=== PATIENT | male | born 1975 | race Hispanic/Latino ===

== ENCOUNTER 2017-05-07 15:58 | Inpatient (IN) | payer MEDICAID, OTHER ==
[2017-05-07 18:02] LABS: SQUAMOUS EPITHIAL < 1 /hpf (0-5); URINE BACTERIA RARE (<OCC); URINE BILIRUBIN NEGATIVE (NEGATIVE); URINE BLOOD MODERATE (NEGATIVE); URINE CLARITY SLIGHTY-CLOUDY (Clear); URINE COLOR AMBER (YELLOW); URINE GLUCOSE (UA) NEG (Normal); URINE LEUKOCYTE ESTERASE NEG Leu/uL (Negative); URINE PROTEIN 30 mg/dL (NEGATIVE)
--- NOTE | 2017-05-07 18:04 | ED PDOC ---
HPI: Psych/Substance Abuse Time Seen by Provider: 05/07/17 16:13 Chief Complaint (Nursing): Psychiatric Evaluation Chief Complaint (Provider): Psychiatric Evaluation History Per: Patient History/Exam Limitations: no limitations Onset/Duration Of Symptoms: Days (x 1 ) Current Symptoms Are (Timing): Still Present Additional Complaint(s): 41 ear old male with history of depression and heroin abuse presents to the ED for psychiatric evaluation. Patient reports his last use of heroin was this morning. He also reports suicidal ideation. Otherwise: (-) trauma, (-) fever, (- )headache, (-) dyspnea, (-) vomiting, (-) hallucinations, (-) homicidal ideation. PMD: none provided Past Medical History Reviewed: Historical Data, Nursing Documentation, Vital Signs Vital Signs: Last Vital Signs Temp 98.4 F 05/07/17 16:16 Pulse 88 05/07/17 16:16 Resp 19 05/07/17 16:16 BP 132/71 05/07/17 16:16 Pulse Ox 100 05/07/17 16:16 - Medical History PMH: Anxiety, Asthma, Depression Denies: Diabetes, Hepatitis, HIV, HTN, Seizures, Sexually Transmitted Disease - Surgical History Surgical History: No Surg Hx - Family History Family History: States: Unknown Family Hx - Immunization History Hx Tetanus Toxoid Vaccination: No Hx Influenza Vaccination: No Hx Pneumococcal Vaccination: No - Home Medications Home Medications: Ambulatory Orders Medication Instructions Recorded Albuterol HFA [Ventolin HFA 90 2 puff IH [id number] PRN 05/07/17 mcg/actuation (8 g)] - Allergies Allergies/Adverse Reactions: Allergies Allergy/AdvReac Type Severity Reaction Status Date / Time Penicillins Allergy Verified 05/07/17 15:12 Review of Systems ROS Statement: Except As Marked, All Systems Reviewed And Found Negative Psych: Positive for: Suicidal ideation. Negative for: Other (homicidal ideation , hallucinations) Physical Exam - Reviewed Nursing Documentation Reviewed: Yes Vital Signs Reviewed: Yes - Physical Exam Comments: GENERAL APPEARANCE: Patient is awake, alert, oriented x 3, in no acute distress. SKIN: Warm, dry; (-) cyanosis HEAD: (-) scalp swelling, (-) scalp tenderness. EYES: (-) conjunctival pallor, (-) scleral icterus, (-) nystagmus. ENMT: Mucous membranes moist. Airway patent: (-) stridor. NECK: (-) tenderness, (-) stiffness, (-) lymphadenopathy. CHEST AND RESPIRATORY: (-) rales, (-) rhonchi, (-) wheezes; breath sounds equal. ABDOMEN: Soft, (-) distention, (-) tenderness, (-) guarding. NEURO AND PSYCH: Mental status as above. Affect: Calm and cooperative. sales team leader: Intact. Pupils equal and reactive; EOMI; (-) facial asymmetry; tongue and uvula midline. Strength and DTRs symmetric. - Laboratory Results Result Diagrams: 05/07/17 17:48 05/07/17 17:48 - ECG O2 Sat by Pulse Oximetry: 100 (RA) Pulse Ox Interpretation: Normal Medical Decision Making Medical Decision Making: Time: 16:16 Initial Plan: --Alcohol serum --CMP --Urine drug --CBC with differentials --Urinalysis Case was discussed with crisis. Patient was evaluated at [facility] today for similar symptoms and was discharged. Labs reviewed. Patient is medically cleared for crisis evaluation. Patient is seen and evaluated by crisis. As per crisis evaluation, decision made for inpatient admission as per Dr. Mckinney for depression. ---- Scribe Attestation: Documented by Wen Li, acting as a scribe for Drea Loyola PA-C Provider Scribe Attestation: All medical record entries made by the Scribe were at my direction and personally dictated by me. I have reviewed the chart and agree that the record accurately reflects my personal performance of the history, physical exam, medical decision making, and the department course for this patient. I have also personally directed, reviewed, and agree with the discharge instructions and disposition. Disposition - Clinical Impression Clinical Impression: Depression - Patient ED Disposition Is Patient to be Admitted: No - Disposition Disposition: Routine/Home Disposition Time: 19:00 Condition: STABLE - PA / WEB APPLICATIONS ARCHITECT / Resident Statement / has reviewed & agrees with the documentation as recorded.
[2017-05-07 18:14] LABS: ALBUMIN 4.1 g/dL (3.5-5.0); ALT/SGPT 25 U/L (21-72); AST/SGOT 23 U/L (17-59); BLOOD UREA NITROGEN 14 mg/dl (9-20); CALCIUM 9.5 mg/dL (8.4-10.2); GFR AFRICAN-AMERICAN > 60; GFR NON-AFRICAN AMERICAN > 60
[2017-05-07 18:19] LABS: BARBITURATES, UR NEGATIVE (NEGATIVE); BENZODIAZEPINES, UR NEGATIVE (NEGATIVE); OPIATES, UR POSITIVE (NEGATIVE); PHENCYCLIDINE, UR NEGATIVE (NEGATIVE)
[2017-05-07 18:20] LABS: BASO # 0.1 K/uL (0.0-0.2); BASO % 0.9 % (0.0-2.0); EOS # 0.1 K/uL (0.0-0.7); EOS % 1.1 % (0.0-4.0); LYMPH # 2.4 K/uL (1.0-4.3); MEAN CELL VOLUME 84.2 fl (80.0-94.0); MEAN CORPUSCULAR HEMOGLOBIN 28.9 pg (27.0-31.0); MEAN CORPUSCULAR HGB CONC 34.3 g/dL (33.0-37.0); MEAN PLATELET VOLUME 8.6 fl (7.2-11.7); MONO # 0.4 K/uL (0.0-0.8); MONO % 5.2 % (0.0-10.0); NEUT # 5.2 K/uL (1.8-7.0); NEUT % 63.8 % (50.0-75.0); NRBC % 0.3 % (0.0-0.0); RBC 5.21 Mil/uL (4.40-5.90); RED CELL DISTRIBUTION WIDTH 14.1 % (11.5-14.5); WHITE BLOOD COUNT 8.2 K/uL (4.8-10.8)
[2017-05-07] MEDS ORDERED: DiphenhydrAMINE 50 mg/ml Inj IM PRN (20:27)
[2017-05-07] MEDS ORDERED: Alum-Mag Hydrox-Simethicone Susp (30 mL) PO PRN (20:27)
[2017-05-07] MEDS ORDERED: Magnesium Hydroxide Susp 30 ml UD PO PRN (20:27)
[2017-05-07] MEDS ORDERED: Albuterol HFA 90 mcg/actuation (8 g) INH PRN (20:50)
--- NOTE | 2017-05-07 23:02 | PCM.BM ---
<Angely Mike - Last Filed: 05/07/17 23:01> Treatment Plan Problems - Problems identified on initial assessmt Feelings of WOrthlessless Date Initiated: 05/07/17 Time Initiated: 23:01 Assessment reference: NA Status: Active Treatment assets and liabiliti Patient Assests: cooperative, insightful, self-reliant, ADL independent Patient Liabilities: poor support system, substance abuse - Milieu Protocol Maintain good personal hygiene: daily Remind patient to perform daily oral care , daily Assist patient to perform ADL's, every shift Encourage regular showers Conduct patient checks and document Observation sheet: Q15 minutes Maintain personal safety: every shift Educate patient to report safety concerns to staff, every shift Monitor environment for contraband/sharps Medication safety: Monitor for expected outcome, potential side effects: every shift, Assess barriers to learning: every shift, Assess readiness for medication education: every shift <MaxineMarychuy ramos - Last Filed: 05/09/17 15:28> Treatment assets and liabiliti Patient Assests: adapts well, cooperative, insightful (limited), resourceful, self-reliant, ADL independent, physically healthy, negotiates basic needs, good past tx response, cognitively intact Patient Liabilities: poor support system, substance abuse Family Contact Family involvement: Patient does not wish Family/SO involvement Family contact: Patient declines to allow family contact at present - Goals for Treatment Patient goals for treatment: Patient to continue stabilization on 3NP through medication management and group/supportive therapy. Patient to be encouraged to attend groups regularly to promote self-awareness, sobriety, and improve insight , anger management, coping skills and self-esteem. Patient to be provided with referral for appropriate level of aftercare to reduce risk of future hospitalizations and ensure safety in the community. Discharge/Continuing Care - Education Needs Education Needs: Patient Medication, Patient Diagnosis/Disease Process, Patient Coping Skills, Patient Community resources, Patient Aftercare Safety Plan - Discharge Discharge Criteria: Tolerates medication w/o severe side effects, Free of Suicidal thoughts, Free of agitation, Normal sleep pattern, Ability to care for self, No longer exhibiting s/s of withdrawal, Reduction of target symptoms Discharge to:: Home, Substance Abuse Rehab, Other ([facility]- if inpatient rehab bed cannot be secured by time of discharge) - Treatment Team Participation Patient/Family/SO Statement: 05/09/17 15:30 Patient attended tx team this morning and was able to engage in discussion regarding tx. Pt. remains somewhat irritable and isolative on 3NP secondary to sxs of withdrawal. Pt. perseverating on need for Ativan to alleviate sxs. Psychoeducation regarding risks of prolonged Ativan use and detriments of Ativan use on possible rehab referrals provided by tx team. Alternate medication regimens explained and encouraged. Pt resistant but agreeable. Pt. ambivalent but agreeable to inpatient rehab referrals once withdrawal symptoms have been addressed. Pt. denies SI/HI and is able to contract for safety on 3NP. Discussed with Family/SO: No Was Patient/Family/SO present at Treatment Team Meeting: Yes <Michelle Levine - Last Filed: 05/10/17 14:36> - Diagnosis (1) Heroin dependence Status: Acute Interventions: motivational therapy 05/10/17 14:36
[2017-05-08] MEDS: Multivitamin With Minerals Tab PO SCH (10:45)
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
[2017-05-08 20:35] LABS: SQUAMOUS EPITHIAL < 1 /hpf (0-5); URINE BILIRUBIN NEGATIVE (NEGATIVE); URINE BLOOD NEGATIVE (NEGATIVE); URINE CLARITY CLEAR (Clear); URINE COLOR YELLOW (YELLOW); URINE GLUCOSE (UA) NEG (Normal); URINE LEUKOCYTE ESTERASE NEG Leu/uL (Negative); URINE PROTEIN NEGATIVE (NEGATIVE)
[2017-05-09] MEDS: Multivitamin With Minerals Tab PO SCH (11:04)
[2017-05-09] MEDS ORDERED: Albuterol HFA 90 mcg/actuation (8 g) IH PRN (13:29)
--- NOTE | 2017-05-09 14:13 | PCM.PYCHPN ---
Psychiatric Progress Note - Psychiatric Progress Note Patient seen today, length of contact: pt evaluated discussed with team chart reviewed Patient Chief Complaint: I get very anxious I have OCD Problems Identified/Issues Discussed: PT EVALUATED WITH TREATMENT TEAM, pt continues to request benzodiazepines , mainly xanax, discussed with pt the addictive nature of xanax, and replacing it with neurontin for anxiety pt reported having OCD symptoms including repeated counting, discussed starting luvox 50mg qhs with plan to uptitrate discussed with pt need for referral to inpatient rehab on discharge, pt agreed continues to have withdrawal symptoms with anxious depressed mood and affect and poor sleep encouraged pt to attend groups denied any current suicidal or homicidal ideations denied perceptual disturbances DSM 5 Symptoms Update: 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 opiate use disorder OCD Medication Change: Yes (START NEURONTIN AND LUVOX) Medical Record Reviewed: Yes Mental Status Examination - Cognitive Function Orientation: Person, Place, Situation, Time Attention: WNL Concentration: WNL Association: WNL Fund of Knowledge: WNL Decription of patient's judgement and insights: POOR INSIGHT AND JUDGMENT - Mood Mood: Depressed, Anxious - Affect Affect: Constricted - Speech Speech: Loud - Formal Thought Process Formal Thought Process: Circumstantial Psychotic Thoughts and Behaviors: pt denied psychotic symptoms, non elicited - Suicidal Ideation Suicidal Ideation: No - Homicidal Ideation Homicidal Ideation: No Goal/Treatment Plan - Goal/Treatment Plan Need for Continued Stay: Severe depression anxiety, Discharge may exacerbated symptoms Progress Toward Problem(s) and Goals/Treatment Plan: start neurontin 200mg tid while downtitrating ativan gradually luvox 50mg qhs with plan to uptitrate for depression and OCD trazodone qhs for insomnia Motivational, group and supportive therapy Estimated Date of D/C: 05/13/17
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
--- NOTE | 2017-05-09 22:56 | CP.PCM.PN ---
Subjective - Date & Time of Evaluation Date of Evaluation: 05/09/17 Time of Evaluation: 22:56 - Subjective Subjective: Called to evaluate this patient who fell hitting his head on the wall. He was found by the nurses on the floor after they heard a Thud noise from his room. he was awake and alert and got up by himself and ambulated to the bed. he referred hitting the mid to left forehead on the wall. Exam shows no bruise nor edema . There is mild tenderness on palpation of the area No other sign of injury. Imp; head injury - Tylenol - Cold compress -Plan CT head without contrast - The patient refuses to have the CT head tonight. will Order CT head for morning. Artie Hollis MD Objective - Vital Signs/Intake and Output Vital Signs (last 24 hours): Temp Pulse Resp BP Pulse Ox 97.6 F 86 18 109/71 100 05/09/17 16:20 05/09/17 19:59 05/09/17 16:20 05/09/17 19:59 05/07/17 19:24 - Medications Medications: Current Medications Acetaminophen (Tylenol 325mg Tab) 650 mg PO Q4 PRN PRN Reason: Pain, moderate (4-7) Al Hydrox/Mg Hydrox/Simethicone (Maalox Plus 30 Ml) 30 ml PO Q4 PRN PRN Reason: Dyspepsia Albuterol (Ventolin Hfa 90 Mcg/Actuation (8 G)) 2 puff INH RQ6 PRN PRN Reason: Shortness of Breath Albuterol (Ventolin Hfa 90 Mcg/Actuation (8 G)) 2 puff IH Q6 PRN PRN Reason: WHEEZING Baclofen (Lioresal) 10 mg PO TID PRN PRN Reason: Leg cramps Last Admin: 05/08/17 16:00 Dose: 10 mg Clonidine HCl (Catapres) 0.1 mg PO Q8 CORAZON Stop: 05/11/17 01:01 Last Admin: 05/09/17 19:59 Dose: Not Given Diphenhydramine HCl (Benadryl) 50 mg IM Q6 PRN PRN Reason: Extrapyramidal S/S Unable PO Diphenhydramine HCl (Benadryl) 50 mg PO Q6 PRN PRN Reason: Extrapyramidal Symptoms Fluvoxamine Maleate (Luvox) 50 mg PO HS [facility] Last Admin: 05/09/17 21:19 Dose: 50 mg Gabapentin (Neurontin) 200 mg PO TID [facility] Last Admin: 05/09/17 19:30 Dose: 200 mg Haloperidol (Haldol) 5 mg PO Q4 PRN PRN Reason: Agitation Haloperidol Lactate (Haldol) 5 mg IM Q4 PRN PRN Reason: Agitation, Unable to Take PO Ibuprofen (Motrin Tab) 800 mg PO Q6 PRN PRN Reason: Pain, Mild (1-3) Stop: 05/10/17 20:47 Loperamide HCl (Imodium) 2 mg PO Q4 PRN PRN Reason: After Loose Bowel Movement Lorazepam (Ativan) 2 mg IM Q4 PRN PRN Reason: Anxiety/Agitation,Unable PO Lorazepam (Ativan) 1 mg PO TID PRN PRN Reason: Anxiety Last Admin: 05/09/17 21:19 Dose: 1 mg Magnesium Hydroxide (Milk Of Magnesia) 30 ml PO HS PRN PRN Reason: Constipation Multivitamins/Minerals (Therapeutic-M Tab) 1 tab PO DAILY [facility] Last Admin: 05/09/17 11:04 Dose: 1 tab Nicotine (Nicoderm Cq) 1 patch TD DAILY [facility] Last Admin: 05/09/17 11:06 Dose: 1 patch Ondansetron HCl (Zofran Odt) 4 mg PO Q8H PRN PRN Reason: Nausea/Vomiting Trazodone HCl (Desyrel) 200 mg PO HS [facility] Last Admin: 05/09/17 21:20 Dose: 200 mg - Labs Labs: 05/07/17 17:48 05/07/17 17:48
[2017-05-10 00:17] VITALS: O2SAT 57
[2017-05-10] MEDS: Multivitamin With Minerals Tab PO SCH (08:24)
--- NOTE | 2017-05-10 14:46 | PCM.PYCHPN ---
Psychiatric Progress Note - Psychiatric Progress Note Patient seen today, length of contact: pt evaluated discussed with team chart reviewed Patient Chief Complaint: I am very tired, I AM STILL GOING THROUGH WITHDRAWAL Problems Identified/Issues Discussed: pt continues to be anhedonic ,low energy, continues to have symptoms of opiate withdrawal, including nausea pt continues to request benzodiazepines for sleep , advised pt about the addictive nature of benzodiazepine and the need to gradually downtitrate ativa and discontinue, discussed with pt increasing the dose of neurontin to help with anxiety and with symptoms of opiate withdrawals. 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 OPIATE USE DISORDER OCD Medication Change: Yes (increase neurontin) Medical Record Reviewed: Yes Mental Status Examination - Cognitive Function Orientation: Person, Place, Situation, Time Attention: WNL Concentration: WNL Association: WNL Fund of Knowledge: WNL Decription of patient's judgement and insights: POOR INSIGHT AND JUDGMENT - Mood Mood: Depressed, Anxious - Affect Affect: Constricted - Speech Speech: Loud - Formal Thought Process Formal Thought Process: Circumstantial Psychotic Thoughts and Behaviors: pt denied psychotic symptoms, non elicited - Suicidal Ideation Suicidal Ideation: No - Homicidal Ideation Homicidal Ideation: No Goal/Treatment Plan - Goal/Treatment Plan Need for Continued Stay: Severe depression anxiety, Discharge may exacerbated symptoms Progress Toward Problem(s) and Goals/Treatment Plan: increase neurontin 300mg tid while downtitrating ativan gradually luvox 50mg qhs with plan to uptitrate for depression and OCD trazodone qhs for insomnia follow up on head CT as pt sustained a fall Motivational, group and supportive therapy Estimated Date of D/C: 05/13/17
--- NOTE | 2017-05-10 18:51 | CT ---
PROCEDURE: CT HEAD WITHOUT CONTRAST. HISTORY: head trauma COMPARISON: None available. TECHNIQUE: Axial computed tomography images were obtained through the head/brain without intravenous contrast. Radiation dose: Total exam DLP = 880.66 mGy-cm. This CT exam was performed using one or more of the following dose reduction techniques: Automated exposure control, adjustment of the mA and/or kV according to patient size, and/or use of iterative reconstruction technique. FINDINGS: HEMORRHAGE: No intracranial hemorrhage. BRAIN: Normal degroot-white matter differentiation and density are appreciated throughout the cerebrum and cerebellum with the brainstem appearing unremarkable as well. There is no mass effect. There is no suspicious extra-axial fluid collection and the midline brain anatomy appears diffusely unremarkable. VENTRICLES: Unremarkable. No hydrocephalus. CALVARIUM: No destructive bony lesion or displaced fracture identified including through the skullbase. PARANASAL SINUSES: Unremarkable as visualized. No significant inflammatory changes. MASTOID AIR CELLS: Unremarkable as visualized. No inflammatory changes. OTHER FINDINGS: None. IMPRESSION: Unremarkable unenhanced CT of the Head.
[2017-05-11] MEDS: Multivitamin With Minerals Tab PO SCH (08:15)
--- NOTE | 2017-05-11 16:17 | PCM.PYCHPN ---
Psychiatric Progress Note - Psychiatric Progress Note Patient seen today, length of contact: pt evaluated discussed with team chart reviewed Patient Chief Complaint: I am feeling better today Problems Identified/Issues Discussed: pt reported better mood, brighter affect, less isolative, motivated to attend inpatient rehab on discharge no reported side effects of medications , observed attending groups and interacting with other patients pt denied any current suicidal or homicidal ideations denied perceptual disturbances, no reported side effects of medications DSM 5 Symptoms Update: opiate induced mood disorder opiate use disorder OCD Medication Change: No Medical Record Reviewed: Yes Mental Status Examination - Cognitive Function Orientation: Person, Place, Situation, Time Attention: WNL Concentration: WNL Association: [facility] Fund of Knowledge: [facility] Decription of patient's judgement and insights: POOR INSIGHT AND JUDGMENT - Mood Mood: Neutral - Affect Affect: Broad - Speech Speech: Appropriate - Formal Thought Process Formal Thought Process: Circumstantial Psychotic Thoughts and Behaviors: pt denied psychotic symptoms, non elicited - Suicidal Ideation Suicidal Ideation: No - Homicidal Ideation Homicidal Ideation: No Goal/Treatment Plan - Goal/Treatment Plan Need for Continued Stay: Severe depression anxiety, Discharge may exacerbated symptoms Progress Toward Problem(s) and Goals/Treatment Plan: CONTINUE neurontin 300mg tid , discontinue ativan increase luvox to 50mg bid OCD trazodone qhs for insomnia Motivational, group and supportive therapy Estimated Date of D/C: 05/13/17
[2017-05-12] MEDS: Multivitamin With Minerals Tab PO SCH (10:32)
--- NOTE | 2017-05-12 12:30 | PCM.PYCHPN ---
Psychiatric Progress Note - Psychiatric Progress Note Patient seen today, length of contact: pt evaluated discussed with team chart reviewed Patient Chief Complaint: I am worried about my living arrangements when I leave Problems Identified/Issues Discussed: pt reported better mood, brighter affect, less isolative, motivated to attend inpatient rehab on discharge no reported side effects of medications , observed attending groups and interacting with other patients pt denied any current suicidal or homicidal ideations denied perceptual disturbances, no reported side effects of medications DSM 5 Symptoms Update: opiate induced mood disorder opiate use disorder OCD Medication Change: No Medical Record Reviewed: Yes Mental Status Examination - Cognitive Function Orientation: Person, Place, Situation, Time Attention: WNL Concentration: WNL Association: WNL Fund of Knowledge: WN Decription of patient's judgement and insights: POOR INSIGHT AND JUDGMENT - Mood Mood: Neutral - Affect Affect: Broad - Speech Speech: Appropriate - Formal Thought Process Formal Thought Process: Circumstantial Psychotic Thoughts and Behaviors: pt denied psychotic symptoms, non elicited - Suicidal Ideation Suicidal Ideation: No - Homicidal Ideation Homicidal Ideation: No Goal/Treatment Plan - Goal/Treatment Plan Need for Continued Stay: Severe depression anxiety, Discharge may exacerbated symptoms Progress Toward Problem(s) and Goals/Treatment Plan: CONTINUE neurontin 300mg tid , luvox 50mg bid OCD trazodone 200 MG qhs for insomnia Motivational, group and supportive therapy Estimated Date of D/C: 05/13/17
[2017-05-12 16:36] VITALS: RESP 18
[2017-05-13] MEDS: Multivitamin With Minerals Tab PO SCH (08:39)
[2017-05-13 09:06] VITALS: BP 118/72; PULSE 60; TEMP 96.6
--- NOTE | 2017-05-13 13:15 | PCM.PYCHDC ---
Mental Status Examination - Mental Status Examination Orientation: Person, Place, Situation Memory: Intact Mood: Neutral Affect: Broad Speech: Appropriate Attention: WNL Concentration: WNL Association: WNL Fund of Knowledge: WNL Formal Thought Process: No Impairment Description of patient's judgement and insight: POOR INSIGHT AND JUDGMENT Psychotic Thoughts and Behaviors: pt denied psychotic symptoms, non elicited Suicidal Ideation: No Current Homicidal Ideation?: No Discharge Summary - Discharge Note Reason for Hospitalization: pt with previous diagnosis of opiate use disorder relapsed after having several months of sobriety from iv opiate use. reports that recent break up of relationship. reports used 6 bags of heroin iv on day of admission. reports cycle of using drugs, getting help including inpt adm and detox, getting clean then after several months of sobriety feeling better thinks can handle it then relapses. reports that has a hx of receiving prn alprazolam for anxiety. reports a long standing hx. of anxiety and ocd which is present when not under the influence of opiates. inpt adms. includes [facility] in [place]. most recent admission 01/2017. Consultations:: List each consultation separately and include: 1. Reason for request. 2. Findings. 3. Follow-up Summary of Hospital Course include:: 1. Description of specific treatment plan utilized for patients during their course of treatmen. 2. Summarize the time- course for resolution of acute symptoms and/or regressed behaviors. 3. Describe issues identified and worked on during hospitalization. 4. Describe medication utilized. 5. Describe medical problems identified and treated. 6. Reassessment of suicide risk Summary of Hospital Course: pt on admission was started on clonidine protocol, monitored for symptoms and signs of opiate withdrawal pt was started on neurontin for anxiety luvox started for OCD , uptitrated to 50mg bid motivational, group and supportive therapy provided pt was encouraged to attend groups, gradually was compliant with treatment , no reported side effects of medications pt was educated about risk of relapse and possible overdose due to lack of tolerance pt on discharge denied any suicidal or homicidal ideations denied perceptual disturbances referrals done by social insurance specialist to inpatient rehab with pt currently on waiting list pt also linked to outpatient [facility] program - Diagnosis (1) Heroin dependence Current Visit: No Status: Acute - Final Diagnosis (DSM 5) Condition upon Discharge: STABLE DSM 5: opiate induced mood disorder/ dysphoria opiate use disorder obsessive compulsive disorder Disposition: HOME/ ROUTINE Follow-up Treatment Plan: CONTINUE neurontin 300mg tid , luvox 50mg bid OCD trazodone 200 MG qhs for insomnia Motivational, group and supportive therapy Prescriptions/Medication Reconciliation: RX: fluvoxaMINE [Luvox] 50 mg PO BID 30 Days #60 tab RX: Gabapentin [Neurontin] 300 mg PO TID 30 Days #90 cap RX: hydrOXYzine Pamoate [Vistaril] 25 mg PO TID PRN 30 Days #90 cap PRN Reason: Anxiety RX: traZODone [Desyrel] 200 mg PO HS 30 Days #30 tab - Antipsychotic Medications Pt discharged on 2 or more routine antipsychotic medications: No
== END 2017-05-13 15:30 | disposition home or self-care (01) | DRG 745 ==
LOC: H.ER 15:58 → H.ERHOLD 18:59 → H.PSYCH 20:48
PROVIDERS: ADMIT Psychiatry & Neurology Psychiatry; ATTEND Psychiatry & Neurology Psychiatry
PROC: GZ51ZZZ Individual Psychotherapy, Behavioral (ICD-10-PCS; 2017-05-07)
PROC: GZHZZZZ Group Psychotherapy (ICD-10-PCS; principal; 2017-05-11)
DX: F11.24 Opioid dependence with opioid-induced mood disorder (principal); F32.9 Major depressive disorder, single episode, unspecified; F41.1 Generalized anxiety disorder; F42.9 Obsessive-compulsive disorder, unspecified; G47.00 Insomnia, unspecified; J45.909 Unspecified asthma, uncomplicated; R45.851 Suicidal ideations; S09.90XA Unspecified injury of head, initial encounter; W19.XXXA Unspecified fall, initial encounter; Z81.8 Family history of other mental and behavioral disorders; F17.210 Nicotine dependence, cigarettes, uncomplicated

== ENCOUNTER 2017-08-21 03:21 | Inpatient (IN) | payer MEDICAID ==
[2017-08-21 04:45] LABS: BASO # 0.1 K/uL (0.0-0.2); BASO % 1.3 % (0.0-2.0); EOS # 0.2 K/uL (0.0-0.7); EOS % 2.1 % (0.0-4.0); HEMOGLOBIN 12.3 g/dL (12.0-18.0); LYMPH # 3.2 K/uL (1.0-4.3); LYMPH % 44.1 % (20.0-40.0); MEAN CELL VOLUME 83.6 fl (80.0-94.0); MEAN CORPUSCULAR HEMOGLOBIN 28.2 pg (27.0-31.0); MEAN CORPUSCULAR HGB CONC 33.7 g/dL (33.0-37.0); MEAN PLATELET VOLUME 8.2 fl (7.2-11.7); MONO # 0.5 K/uL (0.0-0.8); MONO % 6.5 % (0.0-10.0); NEUT # 3.3 K/uL (1.8-7.0); RBC 4.36 Mil/uL (4.40-5.90); RED CELL DISTRIBUTION WIDTH 14.4 % (11.5-14.5); WHITE BLOOD COUNT 7.2 K/uL (4.8-10.8)
[2017-08-21 04:57] LABS: ALBUMIN 3.4 g/dL (3.5-5.0); ALT/SGPT 42 U/L (21-72); AST/SGOT 31 U/L (17-59); BLOOD UREA NITROGEN 11 mg/dl (9-20); CALCIUM 8.9 mg/dL (8.4-10.2); GFR AFRICAN-AMERICAN > 60; GFR NON-AFRICAN AMERICAN > 60
[2017-08-21 05:10] LABS: BARBITURATES, UR NEGATIVE (NEGATIVE); BENZODIAZEPINES, UR POSITIVE (NEGATIVE); OPIATES, UR POSITIVE (NEGATIVE); PHENCYCLIDINE, UR NEGATIVE (NEGATIVE)
[2017-08-21 05:26] LABS: SQUAMOUS EPITHIAL < 1 /hpf (0-5); URINE BACTERIA RARE (<OCC); URINE BILIRUBIN SMALL (NEGATIVE); URINE BLOOD NEGATIVE (NEGATIVE); URINE CLARITY SLIGHTY-CLOUDY (Clear); URINE COLOR AMBER (YELLOW); URINE GLUCOSE (UA) NEG (Normal); URINE HYALINE CAST 0-2 /hpf (0-2); URINE LEUKOCYTE ESTERASE NEG Leu/uL (Negative); URINE PROTEIN 30 mg/dL (NEGATIVE)
--- NOTE | 2017-08-21 06:05 | ED PDOC ---
HPI: Psych/Substance Abuse Time Seen by Provider: 08/21/17 04:15 Chief Complaint (Nursing): Psychiatric Evaluation Chief Complaint (Provider): PSYCH EVAL History Per: Patient (41 Y/O MALE H/O POLYSUBSTANCE ABUSE HERE FOR SUICIDAL IDEATION. STATES HE HAD THOUGHTS OF OVERDOSE WITH HEROIN 2 DAYS AGO. ADMITS USE OF COCAINE/HEROIN YESTERDAY.) Past Medical History Reviewed: Historical Data, Nursing Documentation, Vital Signs Vital Signs: Last Vital Signs Temp 98.2 F 08/21/17 03:42 Pulse 68 08/21/17 03:42 Resp 18 08/21/17 03:42 BP 144/73 08/21/17 03:42 Pulse Ox 99 08/21/17 03:42 - Medical History PMH: Anxiety, Asthma, Depression Denies: Diabetes, Hepatitis, HIV, HTN, Chronic Kidney Disease, Seizures, Sexually Transmitted Disease - Family History Family History: States: Unknown Family Hx - Immunization History Hx Tetanus Toxoid Vaccination: No Hx Influenza Vaccination: No Hx Pneumococcal Vaccination: No - Home Medications Home Medications: Ambulatory Orders Medication Instructions Recorded Albuterol HFA [Ventolin HFA 90 2 puff IH [id number] PRN 05/07/17 mcg/actuation (8 g)] Gabapentin [Neurontin] 300 mg PO TID 30 Days #90 cap 05/13/17 fluvoxaMINE [Luvox] 50 mg PO BID 30 Days #60 tab 05/13/17 hydrOXYzine Pamoate [Vistaril] 25 mg PO TID PRN 30 Days #90 cap 05/13/17 traZODone [Desyrel] 200 mg PO HS 30 Days #30 tab 05/13/17 - Allergies Allergies/Adverse Reactions: Allergies Allergy/AdvReac Type Severity Reaction Status Date / Time Penicillins Allergy Verified 05/07/17 15:12 Review of Systems ROS Statement: Except As Marked, All Systems Reviewed And Found Negative Physical Exam - Reviewed Nursing Documentation Reviewed: Yes Vital Signs Reviewed: Yes - Physical Exam Appears: Positive for: Well, Non-toxic, No Acute Distress Head Exam: Positive for: ATRAUMATIC, NORMAL INSPECTION, NORMOCEPHALIC Skin: Positive for: Normal Color, Warm, DRY Eye Exam: Positive for: EOMI, Normal appearance, PERRL ENT: Positive for: Normal ENT Inspection Neck: Positive for: Normal, Painless ROM Cardiovascular/Chest: Positive for: Regular Rate, Rhythm Respiratory: Positive for: CNT, Normal Breath Sounds Gastrointestinal/Abdominal: Positive for: Normal Exam, Soft Back: Positive for: Normal Inspection Extremity: Positive for: Normal ROM Neurologic/Psych: Positive for: Alert, Oriented - Laboratory Results Result Diagrams: 08/21/17 04:40 08/21/17 04:40 - ECG O2 Sat by Pulse Oximetry: 99 - Progress ED Course And Treament: SEEN BY CRISIS DIAGNOSIS OPIATE INDUCED MOOD DISORDER ADMITTED TO DR. LEE Disposition - Clinical Impression Clinical Impression: Mood disorder, Suicidal ideation - Patient ED Disposition Is Patient to be Admitted: Yes - Disposition Disposition Time: 06:06 Condition: FAIR - Pt Status Changed To: Hospital Disposition Of: Inpatient - Admit Certification Admit to Inpatient:: After my assessment, the patient will require hospitalization for at least two midnights. This is because of the severity of symptoms shown, intensity of services needed, and/or the medical risk in this patient being treated as an outpatient.
[2017-08-21] MEDS ORDERED: DiphenhydrAMINE 50 mg/ml Inj IM PRN (07:54)
[2017-08-21] MEDS ORDERED: Magnesium Hydroxide Susp 30 ml UD PO PRN (07:54)
[2017-08-21] MEDS ORDERED: Alum-Mag Hydrox-Simethicone Susp (30 mL) PO PRN (07:54)
[2017-08-21 07:57] VITALS: O2SAT 100
[2017-08-21] MEDS ORDERED: Albuterol HFA 90 mcg/actuation (8 g) IH PRN (09:04)
--- NOTE | 2017-08-21 09:07 | PCM.PSYCH ---
Initial Psychiatric Evaluation - Initial Psychiatric Evaluation Type of Admission: Voluntary Legal Status: Capacity Chief Complaint (in patient's own words): "I'm depressed." Patient's Reaction to Hospitalization: HPI: 41 yo male w/ h/o depression, heroin and cocaine abuse, presents w/ worsening depression and suicidal ideation to overdose on drugs. He reports feeling depressed/hopeless, +sleep/appetite disturbances. No AH/VH/paranoia/ delusions. Patient has been non-compliant with treatment and medications. PPHx: H/o psychiatric admission to [facility] on 05/01; h/o detox at [facility] PMHx: Denies acute medical issues ALL: PCN (Swelling) SHx: Lives w/ a friend; +Uses 5-15 bags of heroin/day; Smokes crack cocaine; denies daily ETOH use; Smokes 1ppd FHx: Denies family h/o mental illness Current Medications: Active Medications Generic Name Dose Route Start Last Admin Trade Name Freq PRN Reason Stop Dose Admin Acetaminophen 650 mg 08/21/17 07:54 Tylenol 325mg Tab PO Q4 PRN Pain, moderate (4-7) Al Hydrox/Mg Hydrox/Simethicone 30 ml 08/21/17 07:54 Maalox Plus 30 Ml PO Q4 PRN Dyspepsia Clonidine HCl 0.1 mg 08/21/17 11:00 Catapres PO 08/24/17 07:00 Q8 CORAZON Diphenhydramine HCl 50 mg 08/21/17 07:54 Benadryl IM Q6 PRN Extrapyramidal S/S Unable PO Diphenhydramine HCl 50 mg 08/21/17 07:54 Benadryl PO Q6 PRN Extrapyramidal Symptoms Haloperidol 5 mg 08/21/17 07:54 Haldol PO Q4 PRN Agitation Haloperidol Lactate 5 mg 08/21/17 07:54 Haldol IM Q4 PRN Agitation, Unable to Take PO Ibuprofen 600 mg 08/21/17 07:57 Motrin Tab PO Q8 PRN Pain, moderate (4-7) Loperamide HCl 2 mg 08/21/17 07:57 Imodium PO QID PRN Diarrhea Loperamide HCl 2 mg 08/21/17 09:00 Imodium PO QID PRN Diarrhea Lorazepam 2 mg 08/21/17 07:54 Ativan IM Q4 PRN Anxiety/Agitation,Unable PO Lorazepam 2 mg 08/21/17 07:54 Ativan PO Q4 PRN Anxiety/Agitation Magnesium Hydroxide 30 ml 08/21/17 07:54 Milk Of Magnesia PO HS PRN Constipation Nicotine 1 patch 08/21/17 09:00 Nicoderm Cq TD DAILY CORAZON Ondansetron HCl 4 mg 08/21/17 09:00 Zofran Tab PO Q6 PRN Nausea/Vomiting Sertraline HCl 50 mg 08/21/17 09:15 Zoloft PO DAILY CORAZON Trazodone HCl 50 mg 08/21/17 22:00 Desyrel PO HS [facility] Past Psychiatric History - Past Psychiatric History Previous Treatment History: Inpatient Pertinent Medical Hx (Current Medical&Sleep Prob, Allergies): Allergies Allergy/AdvReac Type Severity Reaction Status Date / Time Penicillins Allergy Verified 05/07/17 15:12 Albuterol HFA [Ventolin HFA 90 mcg/actuation (8 g)] 2 puff IH [id number] PRN Gabapentin [Neurontin] 300 mg PO TID 30 Days #90 cap 05/13/17 fluvoxaMINE [Luvox] 50 mg PO BID 30 Days #60 tab 05/13/17 hydrOXYzine Pamoate [Vistaril] 25 mg PO TID PRN 30 Days #90 cap 05/13/17 traZODone [Desyrel] 200 mg PO HS 30 Days #30 tab 05/13/17 Review of Systems - Psychiatric Psychiatric: As Per HPI, Abnormal Sleep Pattern, Anhedonia, Anxiety, Change in Appetite, Depression, Irritability, Suicidal Ideation Mental Status Examination - Personal Presentation Personal Presentation: Looks stated age - Affect Affect: Constricted, Depressed - Motor Activity Motor Activity: Calm - Reliability in Providing Information Reliability in Providing Information: Fair - Speech Speech: Organized - Mood Mood: Depressed - Formal Thought Process Formal Thought Process: No Impairment - Hallucinations/Delusions Additional comments: No AH/VH/paranoia - Obsessions/Compulsions Obsessions: No Compulsions: No - Cognitive Functions Orientation: Person, Place, Situation, Time Sensorium: Alert Attention/Concentration: Attentive Estimate of Intelligence: Average Judgement: Imparied, as evidence by: Poor judgement Memory: Recent intact, as evidence by: Ability to recall events of the day - Risk Risk: Suicidal, Diminished functioning - Strength & Assets Inventory Strength & Assets Inventory: Cooperative DSM 5 DX - DSM 5 DSM 5 Diagnosis: Substance Induced Mood Disorder vs MDD; Opioid Use Disorder; Cocaine Use Disorder - Recommended/Plan of Treatment Treatment Recommendations and Plan of Treatment: Substance Induced Mood Disorder vs MDD; Opioid Use Disorder; Cocaine Use Disorder -Admit to psychiatry unit -Restart treatment w/ antidepressant medication -PRNs for opioid withdrawal symptoms (Motrin, Ativan, Clonidine, Imodium, Zofran ) -Individual and group therapy -Psychoeducation -Disposition planning Projected ELOS: 5-10 days Discharge Plan and Discharge Criteria: Discharge when patient is psychiatrically stable - Smoking Cessation Smoking Cessation Initiated: Yes
--- NOTE | 2017-08-21 12:08 | PCM.BM ---
<Gris Knight - Last Filed: 08/21/17 12:14> Treatment Plan Problems - Problems identified on initial assessmt PROBLEM 1 Date Initiated: 08/21/17 Time Initiated: 12:09 Assessment reference: NA Status: Active HOPELESSNESS/HELPLESSNESS Date Initiated: 08/21/17 Time Initiated: 12:09 Assessment reference: NA Status: Active Treatment assets and liabiliti Patient Assests: adapts well, cooperative, insightful (limited), resourceful, self-reliant, ADL independent, physically healthy, negotiates basic needs, good past tx response, cognitively intact Patient Liabilities: financial problems, relationship conflicts, substance abuse (MONITOR FOR S/S OF WITHDRAWAL) - Milieu Protocol Maintain good personal hygiene: daily Encourage regular showers, daily Remind patient to perform daily oral care Conduct patient checks and document Observation sheet: Q15 minutes Maintain personal safety: every shift Educate patient to report safety concerns to staff, every shift Monitor environment for contraband/sharps Medication safety: Monitor for expected outcome, potential side effects: every shift, Assess barriers to learning: every shift, Assess readiness for medication education: every shift Milieu Narrative: Substance Induced Mood Disorder vs MDD; Opioid Use Disorder; Cocaine Use Disorder -Admit to psychiatry unit -Restart treatment w/ antidepressant medication -PRNs for opioid withdrawal symptoms (Motrin, Ativan, Clonidine, Imodium, Zofran ) -Individual and group therapy -Psychoeducation -Disposition planning Discharge/Continuing Care - Treatment Team Participation Patient/Family/SO Statement: Substance Induced Mood Disorder vs MDD; Opioid Use Disorder; Cocaine Use Disorder -Admit to psychiatry unit -Restart treatment w/ antidepressant medication -PRNs for opioid withdrawal symptoms (Motrin, Ativan, Clonidine, Imodium, Zofran ) -Individual and group therapy -Psychoeducation -Disposition planning <Shirley Bingham - Last Filed: 08/23/17 08:33> - Diagnosis (1) Substance induced mood disorder Status: Acute Interventions: Medication management, Individual and group therapy, Psychoeducation 08/23/17 08:33 (2) Cocaine abuse Status: Acute Interventions: Medication management, Individual and group therapy, Psychoeducation 08/23/17 08:33 (3) Heroin dependence Status: Chronic Interventions: Medication management, Individual and group therapy, Psychoeducation 08/23/17 08:33
--- NOTE | 2017-08-21 20:05 | CP.PCM.CON ---
History of Present Illness - History of Present Illness History of Present Illness: 41 yo male with history of Heroin/Cocaine abuse admitted to psyche unit because of worsening depression and suicidal ideation. Review of Systems - Review of Systems All systems: reviewed and no additional remarkable complaints except (aside from those mentioned above, 12 point system review were negative by me) Past Patient History - Infectious Disease Hx of Infectious Diseases: None - Past Social History Smoking Status: Heavy Smoker > 10 Cigarettes Daily Chewing Tobacco Use: No Cigar Use: No Alcohol: Occasional Drugs: Cocaine, Opiates - CARDIAC Hx Cardiac Disorders: No - PULMONARY Hx Tuberculosis: No - NEUROLOGICAL HX Cerebrovascular Accident: No Hx Seizures: No - HEENT Hx HEENT Problems: Yes Other/Comment: wears glasses, nearsighted - RENAL Hx Chronic Kidney Disease: No - ENDOCRINE/METABOLIC Hx Endocrine Disorders: No - HEMATOLOGICAL/ONCOLOGICAL Hx Cancer: No Hx Human Immunodeficiency Virus (HIV): No - INTEGUMENTARY Hx Dermatological Problems: No - MUSCULOSKELETAL/RHEUMATOLOGICAL Hx Musculoskeletal Disorders: No - GASTROINTESTINAL Hx Gastrointestinal Disorders: No - GENITOURINARY/GYNECOLOGICAL Hx Genitourinary Disorders: No Hx Sexually Transmitted Disorders: No - PSYCHIATRIC Hx Depression: Yes Hx Physical Abuse: No Hx Sexual Abuse: No Hx Substance Use: Yes (sine age 26, IV drug use) - SURGICAL HISTORY Hx Surgeries: No - ANESTHESIA Hx Anesthesia: No Meds Allergies/Adverse Reactions: Allergies Allergy/AdvReac Type Severity Reaction Status Date / Time Penicillins Allergy Verified 05/07/17 15:12 - Medications Medications: Current Medications Acetaminophen (Tylenol 325mg Tab) 650 mg PO Q4 PRN PRN Reason: Pain, moderate (4-7) Al Hydrox/Mg Hydrox/Simethicone (Maalox Plus 30 Ml) 30 ml PO Q4 PRN PRN Reason: Dyspepsia Albuterol (Ventolin Hfa 90 Mcg/Actuation (8 G)) 2 puff IH RQ6 PRN PRN Reason: Wheezing Clonidine HCl (Catapres) 0.1 mg PO Q8 CORAZON Stop: 08/24/17 07:00 Last Admin: 08/21/17 16:53 Dose: 0.1 mg Diphenhydramine HCl (Benadryl) 50 mg IM Q6 PRN PRN Reason: Extrapyramidal S/S Unable PO Diphenhydramine HCl (Benadryl) 50 mg PO Q6 PRN PRN Reason: Extrapyramidal Symptoms Escitalopram Oxalate (Lexapro) 10 mg PO DAILY [facility] Last Admin: 08/21/17 16:53 Dose: 10 mg Haloperidol (Haldol) 5 mg PO Q4 PRN PRN Reason: Agitation Haloperidol Lactate (Haldol) 5 mg IM Q4 PRN PRN Reason: Agitation, Unable to Take PO Ibuprofen (Motrin Tab) 600 mg PO Q8 PRN PRN Reason: Pain, moderate (4-7) Loperamide HCl (Imodium) 2 mg PO QID PRN PRN Reason: Diarrhea Loperamide HCl (Imodium) 2 mg PO QID PRN PRN Reason: Diarrhea Lorazepam (Ativan) 2 mg IM Q4 PRN PRN Reason: Anxiety/Agitation,Unable PO Lorazepam (Ativan) 2 mg PO Q4 PRN PRN Reason: Anxiety/Agitation Magnesium Hydroxide (Milk Of Magnesia) 30 ml PO HS PRN PRN Reason: Constipation Nicotine (Nicoderm Cq) 1 patch TD DAILY [facility] Last Admin: 08/21/17 10:00 Dose: 1 patch Ondansetron HCl (Zofran Tab) 4 mg PO Q6 PRN PRN Reason: Nausea/Vomiting Trazodone HCl (Desyrel) 50 mg PO HS [facility] Physical Exam - Constitutional Appears: No Acute Distress - Head Exam Head Exam: ATRAUMATIC - Eye Exam Eye Exam: absent: Scleral icterus - ENT Exam ENT Exam: Mucous Membranes Moist - Neck Exam Neck exam: Negative for: Meningismus - Respiratory Exam Respiratory Exam: absent: Rales, Rhonchi, Wheezes, Respiratory Distress - Cardiovascular Exam Cardiovascular Exam: REGULAR RHYTHM, +S1, +S2 - GI/Abdominal Exam GI & Abdominal Exam: Soft. absent: Tenderness - Rectal Exam Rectal Exam: Deferred - Extremities Exam Extremities exam: Negative for: calf tenderness, pedal edema - Back Exam Back exam: NORMAL INSPECTION - Neurological Exam Neurological exam: Alert, Oriented x3 - Psychiatric Exam Psychiatric exam: Normal Affect - Skin Skin Exam: Dry, Intact Results - Vital Signs Recent Vital Signs: Last Vital Signs Temp 97.2 F L 08/21/17 17:50 Pulse 55 L 08/21/17 17:50 Resp 18 08/21/17 17:50 BP 129/78 08/21/17 17:50 Pulse Ox 100 08/21/17 10:26 - Labs Result Diagrams: 08/21/17 04:40 08/21/17 04:40 Labs: Laboratory Results - last 24 hr 08/21/17 08/21/17 08/21/17 04:40 04:40 04:40 WBC 7.2 RBC 4.36 L Hgb 12.3 D Hct 36.4 MCV 83.6 MCH 28.2 MCHC 33.7 RDW 14.4 Plt Count 216 MPV 8.2 Neut % (Auto) 46.0 L Lymph % (Auto) 44.1 H [place] % (Auto) 6.5 Eos % (Auto) 2.1 Baso % (Auto) 1.3 Neut # (Auto) 3.3 Lymph # (Auto) 3.2 [place] # (Auto) 0.5 Eos # (Auto) 0.2 Baso # (Auto) 0.1 Sodium 140 Potassium 3.4 L Chloride 106 Carbon Dioxide 25 Anion Gap 12 BUN 11 Creatinine 0.8 Est GFR ( Amer) > 60 Est GFR (Non-Af Amer) > 60 Random Glucose 113 H Calcium 8.9 Total Bilirubin 0.5 AST 31 ALT 42 Alkaline Phosphatase 78 Total Protein 6.6 Albumin 3.4 L Globulin 3.3 Albumin/Globulin Ratio 1.0 Urine Color Urine Clarity Urine pH Ur Specific [place] Urine Protein Urine Glucose (UA) Urine Ketones Urine Blood Urine Nitrate Urine Bilirubin Urine Urobilinogen Ur Leukocyte Esterase Urine RBC (Auto) Urine Microscopic WBC Ur Squamous Epith Cells Urine Bacteria Hyaline Casts Urine Opiates Screen Positive H Urine Methadone Screen Negative Ur Barbiturates Screen Negative Ur Phencyclidine Scrn Negative Ur Amphetamines Screen Negative U Benzodiazepines Scrn Positive U Oth Cocaine Metabols Positive H U Cannabinoids Screen Negative Alcohol, Quantitative < 10 08/21/17 04:40 WBC RBC Hgb Hct MCV MCH MCHC RDW Plt Count MPV Neut % (Auto) Lymph % (Auto) [place] % (Auto) Eos % (Auto) Baso % (Auto) Neut # (Auto) Lymph # (Auto) [place] # (Auto) Eos # (Auto) Baso # (Auto) Sodium Potassium Chloride Carbon Dioxide Anion Gap BUN Creatinine Est GFR ( Amer) Est GFR (Non-Af Amer) Random Glucose Calcium Total Bilirubin AST ALT Alkaline Phosphatase Total Protein Albumin Globulin Albumin/Globulin Ratio Urine Color [place] Urine Clarity Slighty-cloudy Urine pH 5.0 Ur Specific [place] 1.032 H Urine Protein 30 Urine Glucose (UA) Neg Urine Ketones Negative Urine Blood Negative Urine Nitrate Negative Urine Bilirubin Small Urine Urobilinogen 4.0 Ur Leukocyte Esterase Neg Urine RBC (Auto) 11 H Urine Microscopic WBC 2 Ur Squamous Epith Cells < 1 Urine Bacteria Rare Hyaline Casts 0-2 Urine Opiates Screen Urine Methadone Screen Ur Barbiturates Screen Ur Phencyclidine Scrn Ur Amphetamines Screen U Benzodiazepines Scrn U Oth Cocaine Metabols U Cannabinoids Screen Alcohol, Quantitative Assessment & Plan (1) Heroin dependence Status: Chronic Comment: psyche is managing (2) Depression Status: Acute Comment: psyche managing (3) Suicidal ideation Status: Acute Comment: psyche managing
[2017-08-22 09:12] VITALS: RESP 18
--- NOTE | 2017-08-22 13:32 | PCM.PYCHPN ---
Psychiatric Progress Note - Psychiatric Progress Note Patient seen today, length of contact: Patient evaluated, case discussed with team, chart reviewed Patient Chief Complaint: "I'm feeling better." Problems Identified/Issues Discussed: Patient submitted a 48 hour letter requesting discharge. He reports that his mood is improving. He denies acute ideation to harm himself and is more hopeful for the future. He denies adverse effects to medications. Psychoeducation provided on the dangers of substance abuse. Medication Change: No Medical Record Reviewed: Yes Consults ordered or reviewed: Medicine consult Mental Status Examination - Cognitive Function Orientation: Person, Place, Situation, Time Memory: Intact Attention: WNL Concentration: WNL Association: WNL Fund of Knowledge: [facility] Decription of patient's judgement and insights: Poor I/J re: chronic substance abuse; psychoeducation provided - Mood Mood: Neutral - Affect Affect: Broad - Speech Speech: Appropriate - Formal Thought Process Formal Thought Process: No Impairment Psychotic Thoughts and Behaviors: No AH/VH/paranoia/delusions - Suicidal Ideation Suicidal Ideation: No - Homicidal Ideation Homicidal Ideation: No Goal/Treatment Plan - Goal/Treatment Plan Need for Continued Stay: Discharge may exacerbated symptoms Progress Toward Problem(s) and Goals/Treatment Plan: Substance Induced Mood Disorder; Opioid Use Disorder; Cocaine Use Disorder -Restart treatment w/ antidepressant medication -PRNs for opioid withdrawal symptoms (Motrin, Ativan, Clonidine, Imodium, Zofran ) -Individual and group therapy -Psychoeducation -Patient submitted a 48 hour letter requesting discharge; will observe overnight and likely discharge tomorrow if patient continues to improve clinically Estimated Date of D/C: 08/23/17 - Smoking Cessation Smoking Cessation Initiated: Yes
[2017-08-22 16:31] VITALS: BP 110/71; PULSE 76; TEMP 96.8
--- NOTE | 2017-08-23 07:45 | PCM.PYCHDC ---
Mental Status Examination - Mental Status Examination Orientation: Person, Place, Situation, Time Memory: Intact Mood: Neutral Affect: Broad Speech: Appropriate Attention: WNL Concentration: WNL Association: WNL Fund of Knowledge: WNL Formal Thought Process: No Impairment Description of patient's judgement and insight: Poor I/J re: chronic substance abuse; psychoeducation provided Psychotic Thoughts and Behaviors: No AH/VH/paranoia/delusions Suicidal Ideation: No Current Homicidal Ideation?: No Discharge Summary - Discharge Note Reason for Hospitalization: HPI: 41 yo male w/ h/o depression, heroin and cocaine abuse, presents w/ worsening depression and suicidal ideation to overdose on drugs. He reports feeling depressed/hopeless, +sleep/appetite disturbances. No AH/VH/paranoia/ delusions. Patient has been non-compliant with treatment and medications. PPHx: H/o psychiatric admission to [facility] on 05/01; h/o detox at [facility] PMHx: Denies acute medical issues ALL: PCN (Swelling) SHx: Lives w/ a friend; +Uses 5-15 bags of heroin/day; Smokes crack cocaine; denies daily ETOH use; Smokes 1ppd FHx: Denies family h/o mental illness Consultations:: List each consultation separately and include: 1. Reason for request. 2. Findings. 3. Follow-up Consultations: Medicine consult Summary of Hospital Course include:: 1. Description of specific treatment plan utilized for patients during their course of treatmen. 2. Summarize the time- course for resolution of acute symptoms and/or regressed behaviors. 3. Describe issues identified and worked on during hospitalization. 4. Describe medication utilized. 5. Describe medical problems identified and treated. 6. Reassessment of suicide risk Summary of Hospital Course: Patient was admitted to the psychiatry unit. Individual and group therapy were provided. Patient submitted a 48 hr letter yesterday requesting to be discharged and as he does not meet criteria for involuntary commitment, he will be discharged. He denies acute depression/anxiety/AH/VH/paranoia/delusions/SI/ HI. He was started on Lexapro. Psychoeducation provided on the dangers of substance abuse. - Final Diagnosis (DSM 5) Condition upon Discharge: STABLE DSM 5: Substance Induced Mood Disorder; Opioid Use Disorder; Cocaine Use Disorder Disposition: HOME/ ROUTINE Follow-up Treatment Plan: Substance Induced Mood Disorder; Opioid Use Disorder; Cocaine Use Disorder -Continue Lexapro 10 mg PO Daily -Discharge patient Prescriptions/Medication Reconciliation: Escitalopram [Lexapro] 10 mg PO DAILY #30 tab - Smoking Cessation Smoking Cessation Medication prescribed: Yes Reason for not providing: Provided during admission; pt declined outpatient prescription - Antipsychotic Medications Pt discharged on 2 or more routine antipsychotic medications: No
[2017-08-23 15:11] LABS: T4 10.4 ug/dl (5.5-11.0)
== END 2017-08-23 13:09 | disposition home or self-care (01) | DRG 748 ==
LOC: H.ER 03:21 → H.ERHOLD 06:22 → H.PSYCH 10:39
PROVIDERS: ADMIT Psychiatry & Neurology Psychiatry; ATTEND Psychiatry & Neurology Psychiatry
PROC: HZ56ZZZ Individual Psychotherapy for Substance Abuse Treatment, Psychoeducation (ICD-10-PCS; principal; 2017-08-21)
PROC: GZHZZZZ Group Psychotherapy (ICD-10-PCS; 2017-08-21)
DX: F11.94 Opioid use, unspecified with opioid-induced mood disorder (principal); F14.94 Cocaine use, unspecified with cocaine-induced mood disorder; Z88.0 Allergy status to penicillin; R45.851 Suicidal ideations; Z91.14 Patient's other noncompliance with medication regimen; Z91.19 Patient's noncompliance with other medical treatment and regimen; J45.909 Unspecified asthma, uncomplicated; F17.210 Nicotine dependence, cigarettes, uncomplicated